=== PATIENT | female | born 1970 | race Caucasian/White ===

== ENCOUNTER 2021-07-11 13:02 | Emergency (ER) | payer OTHER ==
[~2021-07-11] VITALS: Ht 157.5 cm; Wt 77.1 kg
[2021-07-11] MEDS ORDERED: NEURONTIN800 MG (13:47)
[2021-07-11] MEDS ORDERED: CARDIZEM CD180 M1 (13:47)
[2021-07-11] MEDS ORDERED: COZAAR100 MG (13:47)
[2021-07-11] MEDS ORDERED: ZANAFLEX4 M1 (13:48)
[2021-07-11] MEDS ORDERED: TORADOL60 MG (13:48)
[2021-07-17] MEDS ORDERED: LASIX20 MG PO (20:12)
[2021-07-17] MEDS ORDERED: KETO10TA2 PO (20:12)
== END 2021-07-11 19:45 | disposition home or self-care (01) ==
LOC: ER 13:02
DX: N20.2 Calculus of kidney with calculus of ureter (principal); R53.81 Other malaise; R50.9 Fever, unspecified; R11.2 Nausea with vomiting, unspecified

== ENCOUNTER → 2021-07-17 | Emergency (ER) | payer OTHER ==
[~2021-07-17] VITALS: Ht 160 cm; Wt 77.1 kg
[~2021-07-17] MED LIST: CARDIZEM CD180 M1; COZAAR100 MG; KETO10TA2 PO; LASIX20 MG PO; NEURONTIN800 MG; TORADOL60 MG; ZANAFLEX4 M1
== END | disposition home or self-care (01) ==
LOC: ER 17:52
DX: I10 Essential (primary) hypertension (principal); Z03.818 Encounter for observation for suspected exposure to other biological agents ruled out